=== PATIENT | male | born 1960 | race Asian ===

== ENCOUNTER 2018-09-25 13:01 | Emergency (ER) | payer OTHER ==
[~2018-09-25] VITALS: Ht 165.1 cm; Wt 49.4 kg
--- NOTE | 2018-09-25 13:10 | NUR ---
PT [facility]; PT AAOX4, -SOB, NAD NOTED, VSS, PENDING MD [place]
[2018-09-25] MEDS ORDERED: IV NS 0.9% 1,000 ML BAG IV ONE (15:30)
[2018-09-25 15:39] LABS: BASOPHILS % (AUTO) 0.3 % (0.0-2.0); EOSINOPHILS % (AUTO) 0.9 % (0.0-6.0); HEMATOCRIT 41 % (39-51); HEMOGLOBIN 14.2 g/dL (13.5-17.5); LYMPHOCYTES # (AUTO) 1.3 /CMM (0.8-4.8); LYMPHOCYTES % (AUTO) 15.9 % (20.0-44.0); MEAN CORPUSCULAR HGB CONC 34 g/dl (31.0-36.0); MEAN CORPUSCULAR VOLUME 94 fL (80-96); MONOCYTES # (AUTO) 0.7 /CMM (0.1-1.30); MONOCYTES % (AUTO) 8.1 % (2.0-12.0); NEUTROPHILS # (AUTO) 6.1 /CMM (1.8-8.9); NEUTROPHILS % (AUTO) 74.8 % (43.0-81.0); PLATELET COUNT (AUTO) 207 /CMM (150-450); WHITE BLOOD COUNT (AUTO) 8.2 K/uL (4.3-11.0)
[2018-09-25 15:55] LABS: CALCIUM, SERUM 9.1 mg/dL (8.5-10.1); CARBON DIOXIDE 29 mmol/L (21-32); CHLORIDE 99 mmol/L (98-107); CREATININE 0.5 mg/dL (0.6-1.3); GLUCOSE 88 mg/dL (74-106); POTASSIUM 3.9 mmol/L (3.5-5.1); SODIUM SERUM 136 mmol/L (136-145); UREA NITROGEN, BLOOD 13 mg/dL (7-18)
[2018-09-25 16:00] LABS: ALANINE AMINOTRANSFERASE 28 U/L (12-78); ALBUMIN 3.8 g/dL (3.4-5.0); ALKALINE PHOSPHATASE 52 U/L (46-116); ASPARTATE AMINOTRANSFERASE 22 U/L (15-37); BILIRUBIN,DIRECT 0.1 mg/dL (0.0-0.2); BILIRUBIN,TOTAL 0.5 mg/dL (0.2-1.0); TOTAL PROTEIN, SERUM 8.7 g/dL (6.4-8.2)
--- NOTE | 2018-09-25 17:50 | NUR ---
MARISSA MARTINEZ 1930 TRIP#[id number]
--- NOTE | 2018-09-25 18:49 | NUR ---
CALLED FOR MEAL TRAY
--- NOTE | 2018-09-25 19:46 | NUR ---
CALLED [facility] TO F/U ON TRIP, DELAYED 15-20 MINUTES
--- NOTE | 2018-09-25 20:52 | NUR ---
pt left via private ambulance back to [facility]. spoke to [facility] [address] [facility].
[2018-09-25 20:53] VITALS: BP 119/85
== END 2018-09-25 20:59 ==
LOC: ER 13:01
DX: R42 Dizziness and giddiness (principal); E86.0 Dehydration; J44.9 Chronic obstructive pulmonary disease, unspecified; Z87.891 Personal history of nicotine dependence
CPT/HCPCS: 36415; 70450-TC; 80048-TC; 80076-TC; 84484-TC; 85025-TC; J7030

== ENCOUNTER 2021-08-03 14:30 | Emergency (ER) | payer OTHER ==
[~2021-08-03] VITALS: Ht 165.1 cm; Wt 49.9 kg
[2021-08-03] MEDS ORDERED: FAMOTIDINE/PF INJ 20 MG/2 ML VIAL IV ONE (15:23)
[2021-08-03] MEDS ORDERED: LIDOCAINE VISCOUS 2% UD 15 ML UDC ONE (15:24)
[2021-08-03] MEDS ORDERED: MAG HYDROX/AL HYDROX/SIMETH 30 ML UDC ONE (15:24)
--- NOTE | 2021-08-03 15:30 | NUR ---
COVID PCR SWAB DONE AND SENT TO LAB
--- NOTE | 2021-08-03 15:46 | NUR ---
IV CANNULA G20 INSERTED ON LEFT FA. BLOOD DRAWN AND SENT TO LAB
[2021-08-03] MEDS: LIDOCAINE VISCOUS 2% UD 15 ML UDC MM ONE (15:47)
[2021-08-03] MEDS: FAMOTIDINE/PF INJ 20 MG/2 ML VIAL IV ONE (15:47)
[2021-08-03] MEDS: IV NS 0.9% 1,000 ML BAG IV ONE (15:47)
[2021-08-03] MEDS: MAG HYDROX/AL HYDROX/SIMETH 30 ML UDC PO ONE (15:48)
--- NOTE | 2021-08-03 15:53 | NUR ---
URINE SPECIMEN SENT TO LAB
[2021-08-03 16:02] LABS: BASOPHILS % (AUTO) 0.4 % (0.0-2.0); EOSINOPHILS % (AUTO) 1.3 % (0.0-6.0); HEMATOCRIT 39 % (39-51); HEMOGLOBIN 13.4 g/dL (13.5-17.5); LYMPHOCYTES # (AUTO) 1.7 K/uL (0.8-4.8); LYMPHOCYTES % (AUTO) 23.1 % (20.0-44.0); MEAN CORPUSCULAR HGB CONC 34 g/dl (31.0-36.0); MEAN CORPUSCULAR VOLUME 91 fL (80-96); MONOCYTES % (AUTO) 12.9 % (2.0-12.0); NEUTROPHILS # (AUTO) 4.6 K/uL (1.8-8.9); NEUTROPHILS % (AUTO) 62.3 % (43.0-81.0); PLATELET COUNT (AUTO) 243 K/uL (150-450); RED BLOOD CELL COUNT(AUTO) 4.34 MIL/uL (4.5-6.0); WHITE BLOOD COUNT (AUTO) 7.4 K/uL (4.3-11.0)
[2021-08-03 16:08] LABS: BILIRUBIN,URINE NEGATIVE (NEGATIVE); COLOR,URINE YELLOW (YELLOW); LEUKOCYTE ESTERASE ,URINE NEGATIVE (NEGATIVE); NITRITE, URINE NEGATIVE (NEGATIVE); PROTEIN,URINE NEGATIVE (NEGATIVE); UGLUCOSE NEGATIVE (NEGATIVE); UROBILINOGEN,URINE 0.2 EU/dL (0.2)
[2021-08-03 16:08] LABS: CALCIUM, SERUM 8.8 mg/dL (8.5-10.1); CARBON DIOXIDE 28 mmol/L (21-32); CHLORIDE 99 mmol/L (98-107); CREATININE 0.7 mg/dL (0.6-1.3); GLUCOSE 92 mg/dL (74-106); SODIUM SERUM 136 mmol/L (136-145); UREA NITROGEN, BLOOD 16 mg/dL (7-18)
[2021-08-03 16:14] LABS: ALANINE AMINOTRANSFERASE 24 U/L (12-78); ALBUMIN 3.6 g/dL (3.4-5.0); ALKALINE PHOSPHATASE 55 U/L (46-116); ASPARTATE AMINOTRANSFERASE 17 U/L (15-37); BILIRUBIN,DIRECT 0.1 mg/dL (0.0-0.2); BILIRUBIN,TOTAL 0.4 mg/dL (0.2-1.0); LIPASE 217 U/L (73-393); TOTAL PROTEIN, SERUM 7.7 g/dL (6.4-8.2)
--- NOTE | 2021-08-03 17:38 | NUR ---
BRIANA SHEEHAN [facility] # [phone]
[2021-08-03] MEDS ORDERED: ONDA4TAB5 PO (19:55)
[2021-08-03] MEDS ORDERED: FAMO-131 PO (19:55)
[2021-08-03] MEDS ORDERED: AMOX500T2 PO (19:55)
--- NOTE | 2021-08-03 20:13 | NUR ---
SPOKE TO [employer]BERATHLETE BRIANA. INFORMED HIM THAT PATIENT IS FOR DISCHARGE. REPORT GIVEN TO HIM. WE WILL ARRANGE TRANSPORTATION FOR PATIENT TO GO BACK TO [facility].
--- NOTE | 2021-08-03 20:39 | NUR ---
[facility] CALLED FOR TRANSPORT BACK TO FACILITY PER KOEDIS - ETA 30-45 MIN
--- NOTE | 2021-08-03 21:20 | NUR ---
REPORT GIVEN TO GLENYS OF [facility]. PATIENT WILL BE BROUGHT TO [facility]. IV CANNULA REMOVED. PATIENT IS VITALLY STABLE PRIOR TO TRANSPORT.
[2021-08-03 21:22] VITALS: BP 112/64
== END 2021-08-03 21:27 ==
LOC: ER 14:32
DX: R10.9 Unspecified abdominal pain (principal); R05.9 Cough, unspecified; R07.9 Chest pain, unspecified; Z20.822 Contact with and (suspected) exposure to COVID-19; I10 Essential (primary) hypertension; E78.5 Hyperlipidemia, unspecified; I25.10 Atherosclerotic heart disease of native coronary artery without angina pectoris; I45.10 Unspecified right bundle-branch block; J44.9 Chronic obstructive pulmonary disease, unspecified
CPT/HCPCS: 36415; 71045; 80048; 80076; 81003; 83690; 84484 ×2; 85025; 93005; 96361; 96374; 99285; C9803; J3490; J7030; U0003